=== PATIENT | female | born 1970 | race Caucasian/White ===

== ENCOUNTER → 2020-05-01 14:21 | Outpatient (CLI) | payer BC, SELFPAY ==
[2014-05-12 12:18] VITALS: BMI 21.9
[2020-05-01 17:54] LABS: CRP < 2.90 mg/L (0.0-3.0)
[2020-05-04 18:21] LABS: Endomysial Antibody IgA Negative (Negative); Immunoglobulin A 209 mg/dL (87-352); t-Transglutaminase IgA <2 U/mL (0-3)
== END ==
PROVIDERS: PCP Student in an Organized Health Care Education/Training Program; Referring Provider Internal Medicine Gastroenterology; Visit Provider Internal Medicine Gastroenterology
DX: R19.7 Diarrhea, unspecified (principal)
CPT/HCPCS: 36415; 82784; 83516; 86140; 86255

== ENCOUNTER 2023-03-26 21:01 | Inpatient (IN) | payer BC, SELFPAY ==
[2023-03-26 19:35] VITALS: BMI 25.2
[2023-03-26 19:55] VITALS: BP 102/77; PULSE 80; RESP 16; TEMP 36.9; O2SAT 97
--- NOTE | 2023-03-26 20:30 | HP.PCM.HOS_ITS ---
HPI - General General Date of Admission: 03/26/23 Date of Service: 03/26/23 Chief Complaint: Abdominal pain, N/V. HPI Narrative The patient is a 53 y/o F w/ PMHx: GERD, Anxiety and Depression, IBS, Tobacco use, Hypothyroidism, Chronic migraines, Hx SBO s/p resection, Hx SAH, Stage IA(pT1b pN0 M0) Invasive Ductal carcinoma followiing with Dr. Live and Spencer who presents to the [facility] on 03/26/23 as direct admission for partial SBO initially seen at [facility] on day of presentation with reportedly abdominal pain being primarily in the right lower quadrant, distention, nausea and emesis starting initially early in the a.m. the day prior described as cramping which persisted and worsened with eventually onset of nausea and emesis as well and distention similar with her prior presentations with at least 8-10 episodes previously of partial bowel obstructions prompting outside ED evaluation with CT scan consistent with partial small bowel obstruction with requested transfer for further evaluation and to [facility]. Currently upon evaluation patient is rating her discomfort is 4 out of 10 in severity and notes it has been worsening again as she was dosed with pain medication just prior to transfer. Patient reports that her last bowel movement was on . She notes she is not passed flatus for at least the last 24 hours. FORMERLY [facility] Medical History (Updated 03/26/23 @ 21:[address] Renee Haas MD) Abnormal mammogram with microcalcification Acid reflux Anxiety Arthritis Bowel obstruction Breast cancer Cataplexy delivery delivered Decreased ROM of left shoulder Degenerative disc disease, cervical Degenerative disc disease, lumbar Depression Fibromyalgia Fibromyositis Fracture, ankle Fracture, jaw Hiatal hernia Hypothyroid IBS (irritable bowel syndrome) Migraine Narcolepsy Narcolepsy with cataplexy Nausea & vomiting Paresthesia of arm Postmenopausal Somatic dysfunction of back Spinal stenosis Subarachnoid hemorrhage Tonsillectomy planned Home Medications aripiprazole 2 mg tablet 2 mg PO DAILY 10/21/20 [History Last Taken Unknown] buspirone 10 mg tablet 10 mg PO TID 10/21/20 [History Last Taken Unknown] duloxetine 30 mg capsule,delayed release (Cymbalta) 90 mg PO DAILY 10/21/20 [History Last Taken Unknown] gabapentin 800 mg tablet 800 mg PO QHS 10/21/20 [History Last Taken Unknown] levothyroxine 75 mcg capsule 75 mcg PO DAILY 10/21/20 [History Last Taken Unknown] promethazine 25 mg tablet 25 mg PO TID PRN 10/21/20 [History Last Taken Unknown] sodium, calcium, magnesium, potassium oxybates 0.5 gram/mL oral soln (Xywav) 1.8 g PO BID 10/21/20 [History Last Taken Unknown] sumatriptan 20 mg/actuation nasal spray 20 mg intranasal Q2H PRN 10/21/20 [History Last Taken Unknown] sodium, calcium, magnesium, potassium oxybates 0.5 gram/mL oral soln (Xywav) 4.5 g PO BID 11/03/20 [History Last Taken Unknown] zolpidem 6.25 mg tablet,extended release,multiphase (Ambien CR) 12.5 mg PO QHS 03/09/21 [History Last Taken Unknown] linaclotide 72 mcg capsule (Linzess) 75 mcg PO DAILY 08/31/21 [History Last Taken Unknown] letrozole 2.5 mg tablet 2.5 mg PO DAILY estrogen caden 03/26/23 [History Last Taken 03/25/23 08:00 2.5 mg] Allergy/AdvReac Type Severity Reaction Status Date / Time shellfish derived Allergy Intermediate Diarrhea Verified 10/13/22 15:26 tramadol AdvReac Intermediate Headache Verified 10/13/22 15:26 and Vomiting codeine AdvReac Migraine Verified 10/13/22 15:26 Family History (Updated 03/26/23 @ 21:[address] Renee Haas MD) Mother CVA (cerebral vascular accident) Father Anxiety and depression Suicide Surgical History H/O wisdom tooth extraction H/O: hysterectomy History of appendectomy History of laparoscopy History of lumpectomy of left breast History of resection of small bowel History of tubal ligation Social History (Updated 03/26/23 @ 21:[address] 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 Smoking Status: Current every day smoker tobacco type: cigarettes Tobacco: How many years used: 30 how long ago did patient quit smoking: PATIENT QUIT SMOKING IN 2017 AND RECENTLY RESTARTED IN 2020 alcohol intake: never substance use type: does not use ROS ROS Narrative Admission Review of Systems: CONSTITUTIONAL: No weight loss, fever, chills, + weakness or fatigue. HEENT: Eyes: No visual loss, blurred vision, double vision or yellow sclerae. Ears, Nose, Throat: No hearing loss, sneezing, congestion, runny nose or sore throat. SKIN: No rash or itching, lesions, wounds. CARDIOVASCULAR: No chest pain, chest pressure or chest discomfort, palpitations, edema, orthopnea, syncopal events. RESPIRATORY: No shortness of breath, cough or sputum, wheezing, hemoptysis. GASTROINTESTINAL: + anorexia, nausea, vomiting, abdominal pain, abdominal cramping, abdominal distention. No diarrhea, melena, BRBPR. GENITOURINARY: No dysuria, frequency, urgency or retention. NEUROLOGICAL: + Chronic neuropathy, chronic migraines. No current headache, dizziness, syncope, paralysis, ataxia, numbness or tingling in the extremities, focal weakness, change in bowel or bladder control, seizure. MUSCULOSKELETAL: + muscle, back pain, joint pain or stiffness. HEMATOLOGIC: No anemia, bleeding or bruising. LYMPHATICS: No enlarged nodes. No history of splenectomy. PSYCHIATRIC: + history of depression or anxiety. ENDOCRINOLOGIC: No reports of sweating, cold or heat intolerance. No polyuria or polydipsia. ALLERGIES: No history of asthma, hives, eczema or rhinitis. Vital Signs Vital Signs Vital Signs: 03/26/23 19:55 03/26/23 19:55 Temperature 98.5 F Temperature Source Oral Pulse Rate 80 Respiratory Rate 16 Respiratory Effort Normal Non-Labored Respiratory Depth Normal Respiratory Pattern Normal Blood Pressure 102/77 Blood Pressure Mean 85 Blood Pressure Source Monitor Blood Pressure Position Semi-Fowlers Blood Pressure Location Left Arm Pulse Ox 97 Oxygen Delivery Method Room Air Room Air Weight Weight: 147 lb Body Mass Index (BMI) 25.2 Physical Exam Narrative Physical Examination: General: Awake, alert, oriented x 3 and cooperative, seated upright in the MS bed, fatigued, mildly uncomfortable appearing. Skin: Normal color, normal turgor, no icterus, no cyanosis. HEENT: AT/NC, EOMI, PERRLA, dry MM, no carotid bruits or JVD noted. Lungs: CTA bilaterally, moderate effort, mild decrease BL bases, no rales, ronchi or wheezing. Heart: Regular rate and rhythm; no gallop, rub audible. Abdomen: Soft, generalized discomfort but worse in the right lower quadrant with some voluntary guarding, high-pitched in the right upper quadrant with absent bowel sounds elsewhere, mildly distended but not severe, no obvious HSM. Extremities: No cyanosis, clubbing, or edema. Neurological: Patient awake, alert, oriented x 3, cognitive function intact; pupils equally reactive to light and accommodation, cranial nerves II-XII grossly normal, moving all 4 extremities, no focal deficits, strength moderately globally decreased secondary to acute presentation complaints. Psychiatric: Affect appears fatigued, mildly uncomfortable, no acute evidence of depressive or anxiety feelings but does have underlying history. Assessment & Plan Assessment/Plan (1) Partial bowel obstruction: PLAN: Plan The patient is a 53 y/o F w/ PMHx: GERD, Anxiety and Depression, IBS, Tobacco use, Hypothyroidism, Chronic migraines, Hx SBO s/p resection, Hx SAH, Stage IA(pT1b pN0 M0) Invasive Ductal carcinoma followiing with Dr. Live and Spencer who presents to the [facility] on 03/26/23 as direct admission for partial SBO initially seen at [facility] on day of presentation with reportedly abdominal pain, distention, nausea and emesis with CT scan consistent with partial small bowel obstruction with requested transfer for further evaluation and to [facility]. #1. Abdominal pain, nausea, emesis w/ SBO: Will admit to MS, maintain on IVFs, continue NGT to suction, strict I&Os, IV pain/anti-emetics PRN, serial KUB repeat in AM, IV PPI, maintain NPO on bowel rest. General surgery consulted, p ending #2. Stage IA(pT1b pN0 M0) Invasive Ductal carcinoma: s/p lumpectomy and sentinel node biopsy, + DCIS, ER positive, [place] negative, Her2 negative, declined chemotherapy and genetic testing, received adjuvant Radiation for 12/15/2020 to 01/08/2021, maintained on anastrozole after 8 days due to diarrhea then transitioned to Letrozole since 02/08/2021. Encourage continued follow-up with oncology as previously arranged. Mag and Phos pending. As noted temporally thing all oral regimen including letrozole. #3. Chronic migraines: If necessary may dose patient with as needed sumatriptan regimen once SBO resolves, currently holding all oral meds, per list not on any chronic preventative medications. #4. Anxiety and depression: We will continue patient home aripiprazole, BuSpar, duloxetine home regimen once SBO resolves, currently holding all meds. #5. Hypothyroidism: We will continue patient home levothyroxine regimen once SBO resolves, currently holding all meds. #6. Chronic back pain with radiculopathy: We will continue patient home chronic gabapentin regimen once SBO resolved, currently holding all meds, encourage frequent positional changes. #7. Tobacco Abuse: Encouraged cessation, inpatient consultation per RT, NR if desired. #8. History of subarachnoid hemorrhage: Unclear specific history, surgical history no intervention listed. #9. IBS: We will continue patient home Linzess regimen once SBO resolves, currently holding all meds. #10. GERD: We will maintain on IV PPI. #11. DVT prophylaxis: Lovenox. Charges/Coding Visit Charges Inpatient E&M: 07031 Init Hosp L3
[2023-03-26 21:14] VITALS: O2SAT 99
--- NOTE | 2023-03-26 22:00 | RAD_ITS ---
INDICATION: after NG placement -- KUB with both diaphragms for NG/OG Verification EXAMINATION/TECHNIQUE: X-RAY - XR Abdomen 1 View COMPARISON: None FINDINGS: Frontal view lower chest and upper abdomen Enteric tube tip within gastric lumen with distal side port at level of diaphragm. No significant bowel dilatation demonstrated. Unremarkable lung bases. Heart normal size. Left axillary surgical clips. No acute osseous abnormality. Renal excretion of contrast noted. RAD/Abdomen Single View (Portable) IMPRESSION: Recommend advancing enteric tube at least 4 cm to clear distal side-port from level of GE junction. Electronically Signed: Fredi Mistry MD at 23:08 EDT ,
[2023-03-26] MEDS: Pantoprazole Sodium 40 MG in 0.9% Normal Saline (100mL MB+) 100 ML 330 MG IV (22:03)
[2023-03-26] MEDS: Phenol/Sodium Phenolate 180ML 5 SPRAY MUCOUS MEM (22:03)
[2023-03-26] MEDS: 0.9% Normal Saline (1000mL) 1,000 ML 100 ML IV (22:03)
[2023-03-26] MEDS: Oxymetazoline 0.05% 1 SPRAY SPRAY.BTL 2 SPRAY NASAL (22:04)
[2023-03-26] MEDS: Ondansetron 4 MG/2 ML Vial IV (22:06)
[2023-03-26] MEDS: 0.9% Saline Lock 10 ML Syringe IV (22:06)
[2023-03-26] MEDS: Morphine 2 MG/ML Syringe IV (22:06)
--- NOTE | 2023-03-26 23:22 | RAD_ITS ---
INDICATION: ng placement EXAMINATION/TECHNIQUE: X-RAY - XR Abdomen 1 View: AP view upper abdomen COMPARISON: Upper abdominal radiograph from approximately one hour prior FINDINGS: Adequate position of enteric tube tip at mid stomach with distal side-port below level of GE junction. No significant bowel dilatation. Unremarkable lung bases. Heart normal size. No acute osseous abnormality. RAD/Abdomen Single View (Portable) IMPRESSION: Adequate position of enteric tube Electronically Signed: Fredi Mistry MD at 0:16 EDT ,
--- NOTE | 2023-03-27 00:48 | NURSING ---
NG inserted by isabel Childers RN. Immediately following result of initial KUB, this nurse advanced NG as recommended in results with isabel Childers RN present. BETTY Childers ordered a new KUB. Upon return of KUB and verification of placement, NG connected to LIWS per orders. Nothing came out through RN. this RN then flushed NG per orders and suction pulled out fluid that had been flushed through NG with, very few, small flecks of dark sediment. Pt tolerated well
[2023-03-27] MEDS: proCHLORPERazine 10 MG/2 ML Vial 5 MG IV ×2 (00:57→11:14)
[2023-03-27] MEDS: Morphine 2 MG/ML Syringe IV ×2 (00:57→06:53)
[2023-03-27] MEDS: 0.9% Saline Lock 10 ML Syringe IV ×3 (00:58→11:14)
[2023-03-27 03:30] VITALS: BP 87/50; PULSE 70; RESP 12; TEMP 36.5; O2SAT 92
[2023-03-27 05:03] VITALS: BMI 25.2
[2023-03-27 05:23] LABS: Bedside Glucose 90 mg/dL (74-106)
--- NOTE | 2023-03-27 05:55 | RAD_ITS ---
INDICATION: pSBO EXAMINATION/TECHNIQUE: X-RAY - XR Abdomen 1 View COMPARISON: FINDINGS: Nasogastric tube extends below the left hemidiaphragm. There is contrast seen within the urinary bladder. BOWEL GAS PATTERN: Non-obstructive. No bowel or stomach distention. FREE AIR: Not assessed on a single supine view. ORGANOMEGALY: Not seen. CALCIFICATIONS: No abnormal calcifications observed. LOWER CHEST: No acute pathology. BONES AND SOFT TISSUES: No acute pathology. RAD/Abdomen Single View (Portable) IMPRESSION: Non-obstructive bowel gas pattern. Nasogastric tube extends below left hemidiaphragm. Electronically Signed: Fredi Arreola MD at 9:32 EDT ,
[2023-03-27 06:24] LABS: Absolute Lymphocyte Count 1.27 X10^3/uL (0.83-4.51); Absolute Neutrophil Count 5.3 X10^3/uL (2.0-7.7); Basophil# 0.07 X10^3/uL; Eosinophil# 0.02 X10^3/uL; Eosinophils% 0.3 % (0-5); Hematocrit 43.4 % (37-47); Hemoglobin 13.6 g/dL (12.0-15.0); Lymphocyte # 1.27 X10^3/ul (0.83-4.51); Lymphocyte % 17.5 % (19-41); Mean Corp Hgb Conc 31.3 g/dL (32-36); Mean Corpuscular Hgb 29.6 pg (27.0-32.0); Mean Corpuscular Volume 94.6 fL (81-99); Mean Platelet Vol. 9.4 fl (6.2-12.0); Monocyte# 0.53 X10^3/uL; Monocyte% 7.3 % (0-10); NRBC Flagged by Analyzer 0 % (0-5); Neutrophil # 5.34 X10^3/uL (2.7-7.7); Neutrophil % 73.3 % (47-70); Platelet Count 263 K/mm3 (150-450); RBC Distribution Width CV 13.8 % (11.6-14.6); RBC Distribution Width SD 48.6 fl (35.1-43.9); Red Blood Count 4.59 M/mm3 (4.2-5.4); White Blood Count 7.3 K/mm3 (4.4-11.0)
[2023-03-27 06:49] LABS: AST(SGOT) 6 U/L (15-37); Alanine Aminotransfer ALT/SGPT 15 U/L (13-56); Albumin, Serum 2.9 g/dL (3.2-5.0); Alkaline Phosphatase 67 U/L (45-117); Anion Gap 4 (5-15); BUN 13 mg/dL (7-18); BUN/Creat Ratio 11.3 RATIO (10-20); Calcium,Total 7.9 mg/dL (8.5-10.1); Chloride 109 mmol/L (98-107); Creatinine, Serum 1.15 mg/dL (0.55-1.02); EST Glomerular Filtration Rate 52 mL/min (>60); Est Glom Filt Rate - Afr Amer 63 mL/min (>60); Estimated Creatinine Clearance 47.73 ml/min; Globulin 2.8 g/dL (2.2-4.2); Glucose 87 mg/dL (74-106); Magnesium 2.5 mg/dL (1.6-2.6); Potassium 4.2 mmol/L (3.5-5.1); Protein, Total 5.7 g/dL (6.4-8.2); Sodium Level 139 mmol/L (136-145)
[2023-03-27] MEDS: 0.9% Normal Saline (1000mL) 1,000 ML 100 ML IV ×2 (06:49→19:55)
[2023-03-27] MEDS: Ondansetron 4 MG/2 ML Vial IV (06:53)
[2023-03-27 06:54] LABS: Phosphorus 3.1 mg/dL (2.5-4.9)
[2023-03-27 07:25] VITALS: O2SAT 87
--- NOTE | 2023-03-27 07:49 | PN.HOSP_ITS ---
Reason for Visit Reason for Visit: Diagnoses Partial intestinal obstruction, unspecified as to cause (03/26/23) Subjective Subjective Patient reports having headache, did pass some gas but still just feeling bad overall Objective Data Objective Data Vital Signs: Vital Signs Temp Pulse Resp BP Pulse Ox O2 Del Method 97.7 F L 70 12 87/50 L 92 Room Air 03/27/23 03:30 03/27/23 03:30 03/27/23 03:30 03/27/23 03:30 03/27/23 03:30 03/27/23 03:30 Oxygen Delivery Method Room Air Weight: 66.67 kg Body Mass Index (BMI) 25.2 Intake & Output: Intake and Output for Last 24 Hours 03/25/23 03/26/23 03/27/23 23:59 23:59 23:59 Intake Total 113.33 / 238.33 1093.33 / 1093.33 Output Total 150 / 150 Balance 113.33 / 138.33 943.33 / 943.33 Lab / Micro Data 03/27/23 05:55 03/27/23 05:55 Labs: Laboratory Results - last 24 hr 03/27/23 04:54: POC Glucose 90 03/27/23 05:55: WBC 7.3, RBC 4.59, Hgb 13.6, Hct 43.4, MCV 94.6, MCH 29.6, MCHC 31.3 L, RDW Std Deviation 48.6 H, RDW Coeff of Sawyer 13.8, Plt Count 263, MPV 9.4, Immature Gran % (Auto) 0.600, Neut % (Auto) 73.3 H, Lymph % (Auto) 17.5 L, [place] % (Auto) 7.3, Eos % (Auto) 0.3, Baso % (Auto) 1.0, Absolute Neuts (auto) 5.3, Absolute Lymphs (auto) 1.27, Nucleated RBC % 0, Sodium 139, Potassium 4.2, Ch loride 109 H, Carbon Dioxide 26.0, Anion Gap 4 L, BUN 13, Creatinine 1.15 H, Estim Creat Clear Calc 47.73, Est GFR (MDRD) Af Amer 63, Est GFR (MDRD) Non-Af 52 L, BUN/Creatinine Ratio 11.3, Glucose 87, Calcium 7.9 L, Phosphorus 3.1, Magnesium 2.5, Total Bilirubin 1.10 H, AST 6 L, ALT 15, Alkaline Phosphatase 67, Total Protein 5.7 L, Albumin 2.9 L, Globulin 2.8, Albumin/Globulin Ratio 1.0 Radiography Diagnostic Testing: Radiology Impression KUB X-Ray 03/26/23 22:00 IMPRESSION: Recommend advancing enteric tube at least 4 cm to clear distal side-port from level of GE junction. Electronically Signed: Fredi Mistry MD at 23:08 EDT , KUB X-Ray 03/26/23 23:22 IMPRESSION: Adequate position of enteric tube Electronically Signed: Fredi iMstry MD at 0:16 EDT , Physical Exam Narrative General: Alert, oriented, appears tired HEENT: Atraumatic, normocephalic Eyes: Anicteric, normal conjunctiva, extraocular movements grossly intact Neck: Supple Respiratory: Clear to auscultation bilaterally, normal respiratory effort Cardiovascular: Regular rate and rhythm GI: Soft, hypoactive bowel sounds, no rebound, guarding, rigidity nondistended Extremities: No edema Musculoskeletal: Moving all extremities Neuro: No overt focal neurological deficits Skin: No rashes appreciated Psych: Cooperative Assessment & Plan Assessment/Plan (1) Partial bowel obstruction: PLAN: Plan #Partial small bowel obstruction -With history of small bowel obstruction status post resection and multiple episodes of partial small bowel obstructions -Presented to outlying facility and CT scan consistent with partial small bowel obstruction and transfer is requested to [facility] -IVF -Continue NG tube -Serial KUBs -General surgery consult -03/27: NG tube remains in place, patient undergoing small bowel follow-through, continue present management #Chronic migraines -Has a migraine at present, we do not have her intranasal triptan on formulary, will give subcu x1 #Stage IA(pT1b pN0 M0) Invasive Ductal carcinoma -s/p lumpectomy and sentinel node biopsy, + DCIS, ER positive, [place] negative, Her2 negative, declined chemotherapy and genetic testing, received adjuvant Radiation for 12/15/2020 to 01/08/2021, on letrozole after not tolertaing anastrozole d/t diarrhea -following with Dr. Live and Spencer #Chronic back pain with radiculopathy -Resume home gabapentin once SBO resolves #Hx anxiety and depression -Anxiety and depression: We will continue patient home aripiprazole, BuSpar, duloxetine home regimen once SBO resolves, currently holding all meds. #Hx SAH -Supportive care -Unclear specific history, surgical history no intervention listed #Hypothyroidism -Continue Synthroid once patient taking p.o. #GERD -Continue IV PPI #Tobacco use -Advise cessation #DVT ppx: Subcu Lovenox Josselyn Miller MD Time spent in the patient's overall evaluation,decision-making process, review of diagnostic data, adjustment of management, discussion with other providers, nursing nursing and ancillary staff involved in patient's care documentation, 36 minutes Charges/Coding Visit Charges Inpatient E&M: 42559 Subs Hosp L2
--- NOTE | 2023-03-27 07:57 | CON.PCM.SX_ITS ---
Assessment & Plan Assessment/Plan (1) Partial bowel obstruction: PLAN: Patient was transferred here with a partial small bowel obstruction. She does have a history of small bowel resection due to obstruction. Her NG did not put much out. She is having pain and her outside CT suggested partial small bowel obstruction. I will order a small bowel follow-through today. Pieter Sanchez MD Pager: [facility] [address] [place] [address] [facility] [place], [address] [place] [phone] Office: HPI Consult Data Date of Consult: 03/27/23 HPI Narrative HPI Narrative: KAVITHA SKINNER, is a 53 F who presents with abdominal pain. Patient has had several bowel obstructions in the past. She says her last bowel resection was years ago. Her last bowel obstruction was a few years ago. She says usually they resolve spontaneously. She says that she has not had flatus in a few days. [facility] Medical History (Updated 03/26/23 @ 21:[address] Renee Haas MD) Abnormal mammogram with microcalcification Acid reflux Anxiety Arthritis Bowel obstruction Breast cancer Cataplexy delivery delivered Decreased ROM of left shoulder Degenerative disc disease, cervical Degenerative disc disease, lumbar Depression Fibromyalgia Fibromyositis Fracture, ankle Fracture, jaw Hiatal hernia Hypothyroid IBS (irritable bowel syndrome) Migraine Narcolepsy Narcolepsy with cataplexy Nausea & vomiting Paresthesia of arm Postmenopausal Somatic dysfunction of back Spinal stenosis Subarachnoid hemorrhage Tonsillectomy planned Home Medications aripiprazole 2 mg tablet 2 mg PO DAILY depression 10/21/20 [History Last Taken 03/25/23 08:00 2 mg] buspirone 10 mg tablet 10 mg PO TID anxiety 10/21/20 [History Last Taken 03/25/23 08:00 20 mg] duloxetine 30 mg capsule,delayed release (Cymbalta) 90 mg PO DAILY depression 10/21/20 [History Last Taken 03/25/23 10:00 90 mg] gabapentin 800 mg tablet 800 mg PO QHS nerve pain 10/21/20 [History Last Taken 03/25/23 22:00 800 mg] levothyroxine 75 mcg capsule 75 mcg PO DAILY thyroid 10/21/20 [History Last Taken 03/25/23 06:00 75 mcg] promethazine 25 mg tablet 25 mg PO TID PRN nausea and vomiting 10/21/20 [History Last Taken Unknown] sodium, calcium, magnesium, potassium oxybates 0.5 gram/mL oral soln (Xywav) 1.8 g PO BID narcolepsy 10/21/20 [History Last Taken 03/25/23 22:00 1.8 grams] sumatriptan 20 mg/actuation nasal spray 20 mg intranasal Q2H PRN migraine headache 10/21/20 [History Last Taken Unknown] sodium, calcium, magnesium, potassium oxybates 0.5 gram/mL oral soln (Xywav) 4.5 g PO BID narcolepsy 11/03/20 [History Last Taken 03/25/23 02:00 4.5 grams] zolpidem 6.25 mg tablet,extended release,multiphase (Ambien CR) 12.5 mg PO QHS sleep 03/09/21 [History Last Taken 03/25/23 22:00 12.5 mg] letrozole 2.5 mg tablet 2.5 mg PO DAILY estrogen caden 03/26/23 [History Last Taken 03/25/23 08:00 2.5 mg] Allergy/AdvReac Type Severity Reaction Status Date / Time shellfish derived Allergy Intermediate Diarrhea Verified 10/13/22 15:26 tramadol AdvReac Intermediate Headache Verified 10/13/22 15:26 and Vomiting codeine AdvReac Migraine Verified 10/13/22 15:26 Family History (Updated 03/26/23 @ 21:[address] Renee Haas MD) Mother CVA (cerebral vascular accident) Father Anxiety and depression Suicide Surgical History H/O wisdom tooth extraction H/O: hysterectomy History of appendectomy History of laparoscopy History of lumpectomy of left breast History of resection of small bowel History of tubal ligation Social History (Updated 03/26/23 @ 21:[address] 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 Smoking Status: Current every day smoker tobacco type: cigarettes Tobacco: How many years used: 30 how long ago did patient quit smoking: PATIENT QUIT SMOKING IN 2017 AND RECENTLY RESTARTED IN 2020 alcohol intake: never substance use type: does not use ROS Constitutional Constitutional: Reports anorexia; Denies fatigue Eyes Eyes: Denies blurry vision ENT HEENT: Denies abnormal hearing Cardiovascular Cardiovascular: Denies chest pain Respiratory/Chest Respiratory/Chest: Reports cough; Denies dyspnea Gastrointestinal Gastrointestinal: Reports abdominal pain; Denies nausea or vomiting Lab / Micro Data 03/27/23 05:55 03/27/23 05:55 Labs: Laboratory Results - last 24 hr 03/27/23 04:54: POC Glucose 90 03/27/23 05:55: WBC 7.3, RBC 4.59, Hgb 13.6, Hct 43.4, MCV 94.6, MCH 29.6, MCHC 31.3 L, RDW Std Deviation 48.6 H, RDW Coeff of Sawyer 13.8, Plt Count 263, MPV 9.4, Immature Gran % (Auto) 0.600, Neut % (Auto) 73.3 H, Lymph % (Auto) 17.5 L, [place]rack[place] % (Auto) 7.3, Eos % (Auto) 0.3, Baso % (Auto) 1.0, Absolute Neuts (auto) 5.3, Absolute Lymphs (auto) 1.27, Nucleated RBC % 0, Sodium 139, Potassium 4.2, Chloride 109 H, Carbon Dioxide 26.0, Anion Gap 4 L, BUN 13, Creatinine 1.15 H, Estim Creat Clear Calc 47.73, Est GFR (MDRD) Af Amer 63, Est GFR (MDRD) Non-Af 52 L, BUN/Creatinine Ratio 11.3, Glucose 87, Calcium 7.9 L, Phosphorus 3.1, Magnesium 2.5, Total Bilirubin 1.10 H, AST 6 L, ALT 15, Alkaline Phosphatase 67, Total Protein 5.7 L, Albumin 2.9 L, Globulin 2.8, Albumin/Globulin Ratio 1.0 Radiology Impression KUB X-Ray 03/26/23 22:00 IMPRESSION: Recommend advancing enteric tube at least 4 cm to clear distal side-port from level of GE junction. Electronically Signed: Fredi Mistry MD at 23:08 EDT , KUB X-Ray 03/26/23 23:22 IMPRESSION: Adequate position of enteric tube Electronically Signed: Fredi Mistry MD at 0:16 EDT ,
--- NOTE | 2023-03-27 08:45 | RAD_ITS ---
INDICATION: sbo -- normal gastgrograffin follow through EXAMINATION/TECHNIQUE: Gastrograffin oral contrast was administered orally via enteric tube to the patient. 7 total images. No fluoroscopic images. 120 mL of Gastrografin with 120 mL of water administered. COMPARISON: Prior study dated: Radiograph 03/27/2023 FINDINGS: On the initial image contrast is injected through the enteric tube filling the proximal stomach. Gas filled small bowel seen proximally with scattered gas throughout the remainder of the bowel noted. After 30 minutes, contrast still mostly fills the stomach though there is some progression into the proximal small bowel. There is further progression of contrast on the 60 and 90 minute images. After 120 minutes, contrast is seen entering the colon. This is further progressive on the subsequent images up to 240 minutes. RAD/Small Bowel Series Only IMPRESSION: Gastrografin small bowel study showing passage of contrast through the small bowel and into the colon after 120 minutes. This is not consistent with a high-grade obstruction. Electronically Signed: Gary Sabillon MD at 15:18 EDT ,
[2023-03-27] MEDS: Enoxaparin 40 MG/0.4 ML Syringe SC (11:15)
[2023-03-27] MEDS: Pantoprazole Sodium 40 MG in 0.9% Normal Saline (100mL MB+) 100 ML 330 MG IV ×2 (11:15→22:07)
[2023-03-27 11:29] VITALS: BP 133/76; PULSE 80; PULSE 91; RESP 18; TEMP 36.7; O2SAT 93
[2023-03-27 11:57] LABS: Bedside Glucose 90 mg/dL (74-106)
--- NOTE | 2023-03-27 13:10 | CASEMGMT ---
RN?CM?VEHICLE OPERATOR TECHNICIAN?CM?to room to meet with patient for initial transition planning/care coordination?assessment.?RN?CM?introduced self and role at [facility].? Pt voices understanding and consents to?assessment?at this time.? Pt resting in bed in no distress at this time.? Pt is A/O at this time and answers all questions appropriately.?? Care providers, pharmacy, and demographics verified/updated at this time. PCP: Dr Miller Beck Specialists: Dr Live-oncology. Pt states she has an appt w/him tomorrow and lab work is scheduled for 12:30 PM. She states she will call and cancel the appt if she is not discharged prior to then. RN CM made her aware to ask for RN CM if she needs any assistance w/this. Pt also sees Dr Palmer-radiation oncologist and Dr Duke-neurology Preferred Pharmacy: [facility] Insurance: [place] Prescription Benefit:?Yes Living Will/HPOA:? Pt does not currently have LW/HCPOA and declines info at this time.? Pt made aware that she can contact as an out-pt and make appt in the future if she decides she would like to talk with someone about this or would like to utilize [facility] social work for advanced directive completion.? LNOK: , [place] Living Arrangements: Lives w/her in 2-story home w/5 or so steps to enter. Denies difficulty w/stairs. Independent and works full-time. Transportation:?Pt states drives self and states no transportation concerns at this time.? also drives. DME: ? Denies using any DME and denies needs.? HHC/SNF: No hx of either. No needs identified. Pt wishes to return home and states has no concerns with going home at time of discharge.? CM?to follow for any discharge planning/needs.? Pt voices no concerns/needs at this time.? Advised pt to ask for?CM?if any further questions/concerns/needs arise.? Voices understanding. PLAN:??Home Zachary BSN?RN?CM
[2023-03-27 14:58] VITALS: BP 113/75; PULSE 81; RESP 18; TEMP 36.8; O2SAT 100
[2023-03-27 15:01] VITALS: PULSE 90
[2023-03-27] MEDS: SUMAtriptan 20 MG SPRAY NASAL (15:15)
[2023-03-27 19:50] VITALS: BP 98/63; PULSE 70; RESP 14; TEMP 36.9; O2SAT 93
[2023-03-28 05:08] VITALS: BP 106/59; PULSE 67; RESP 16; TEMP 37; O2SAT 99
[2023-03-28 05:10] VITALS: BMI 25.2
[2023-03-28] MEDS: 0.9% Normal Saline (1000mL) 1,000 ML 100 ML IV (05:12)
--- NOTE | 2023-03-28 06:36 | PCM.PN.SRG ---
Subjective Subjective Patient had small bowel follow-through yesterday and she had several bowel movements and flatus overnight. She is feeling better with no abdominal pain or nausea this morning. NG was removed yesterday evening. She tolerated clears last night. Objective Data Objective Data Vital Signs: Vital Signs Temp Pulse Resp BP Pulse Ox O2 Del Method 98.6 F 67 16 106/59 L 99 Room Air 03/28/23 05:08 03/28/23 05:08 03/28/23 05:08 03/28/23 05:08 03/28/23 05:08 03/28/23 05:08 Oxygen Delivery Method Room Air Weight: 146 lb 15.715 oz Body Mass Index (BMI) 25.2 Intake & Output: Intake and Output for Last 24 Hours 03/26/23 03/27/23 03/28/23 23:59 23:59 23:59 Intake Total 113.33 / 238.33 2438.33 / 2438.33 1428.33 / 1428.33 Output Total 600 / 600 Balance 113.33 / 138.33 1838.33 / 1838.33 1428.33 / 1428.33 Lab / Micro Data 03/27/23 05:55 03/27/23 05:55 Labs: Laboratory Results - last 24 hr 03/27/23 05:55: Sodium 139, Potassium 4.2, Chloride 109 H, Carbon Dioxide 26.0, Anion Gap 4 L, BUN 13, Creatinine 1.15 H, Estim Creat Clear Calc 47.73, Est GFR (MDRD) Af Amer 63, Est GFR (MDRD) Non-Af 52 L, BUN/Creatinine Ratio 11.3, Glucose 87, Calcium 7.9 L, Phosphorus 3.1, Magnesium 2.5, Total Bilirubin 1.10 H, AST 6 L, ALT 15, Alkaline Phosphatase 67, Total Protein 5.7 L, Albumin 2.9 L, Globulin 2.8, Albumin/Globulin Ratio 1.0 03/27/23 11:09: POC Glucose 90 Radiography Diagnostic Testing: Radiology Impression KUB X-Ray 03/27/23 05:55 IMPRESSION: Non-obstructive bowel gas pattern. Nasogastric tube extends below left hemidiaphragm. Electronically Signed: Fredi Arreola MD at 9:32 EDT , Small Bowel X-Ray 03/27/23 08:45 IMPRESSION: Gastrografin small bowel study showing passage of contrast through the small bowel and into the colon after 120 minutes. This is not consistent with a high-grade obstruction. Electronically Signed: Gary Sabillon MD at 15:18 EDT , Physical Exam Const oriented x3 and no apparent distress Resp normal respiratory effort GI soft to palpation and non-tender Assessment & Plan Assessment/Plan (1) Partial bowel obstruction: PLAN: Patient's bowel obstruction seems to have resolved. She has small bowel follow-through yesterday which showed contrast going into the colon. She had several bowel movements overnight and is passing a lot of flatus. She tolerated clears and her NG was removed last night. I will advance her to regular diet today and if she tolerates that she may be discharged home. Follow-up as needed. Pieter Sanchez MD Pager: [facility] [address] [place] [address], [address] [place] [address] Office:
[2023-03-28 06:43] LABS: Absolute Lymphocyte Count 0.63 X10^3/uL (0.83-4.51); Absolute Neutrophil Count 4.5 X10^3/uL (2.0-7.7); Basophil# 0.05 X10^3/uL; Basophil% 0.9 % (0-1); Hematocrit 39.7 % (37-47); Hemoglobin 12.9 g/dL (12.0-15.0); Lymphocyte # 0.63 X10^3/ul (0.83-4.51); Lymphocyte % 11.4 % (19-41); Mean Corp Hgb Conc 32.5 g/dL (32-36); Mean Corpuscular Hgb 29.7 pg (27.0-32.0); Mean Corpuscular Volume 91.5 fL (81-99); Mean Platelet Vol. 9.4 fl (6.2-12.0); Monocyte# 0.32 X10^3/uL; Monocyte% 5.8 % (0-10); NRBC Flagged by Analyzer 0 % (0-5); Neutrophil # 4.51 X10^3/uL (2.7-7.7); Neutrophil % 81.5 % (47-70); Platelet Count 244 K/mm3 (150-450); RBC Distribution Width CV 13.2 % (11.6-14.6); RBC Distribution Width SD 44.7 fl (35.1-43.9); Red Blood Count 4.34 M/mm3 (4.2-5.4); White Blood Count 5.5 K/mm3 (4.4-11.0)
[2023-03-28 07:16] LABS: Anion Gap 4 (5-15); BUN 8 mg/dL (7-18); BUN/Creat Ratio 9.6 RATIO (10-20); Calcium,Total 8.3 mg/dL (8.5-10.1); Chloride 111 mmol/L (98-107); Creatinine, Serum 0.83 mg/dL (0.55-1.02); EST Glomerular Filtration Rate 75 mL/min (>60); Est Glom Filt Rate - Afr Amer 91 mL/min (>60); Estimated Creatinine Clearance 66.13 ml/min; Glucose 103 mg/dL (74-106); Potassium 3.7 mmol/L (3.5-5.1); Sodium Level 139 mmol/L (136-145)
[2023-03-28 07:29] VITALS: O2SAT 99
[2023-03-28 08:35] VITALS: BP 117/58; PULSE 75; RESP 14; TEMP 36.7; O2SAT 96
[2023-03-28] MEDS: Pantoprazole Sodium 40 MG in 0.9% Normal Saline (100mL MB+) 100 ML 330 MG IV (09:26)
--- NOTE | 2023-03-28 11:00 | PCM.DC.SUM ---
Providers Date of Admission: 03/26/23 Date of Discharge: 03/28/23 Primary Care Physician: Dr. Miller Beck, Consultations 03/26/23 20:58 Consult: General Surgery Routine Consulting Provider: Pieter Sanchez Reason for Consult: pSBO EMERGENT Consult: No MD Notified: Yes Date Notified: 03/26/23 Time Notified: 20:59 Method of Notification: Text Reason For Visit: PSBO Diagnosis Discharge Diagnosis (1) Partial bowel obstruction: Status: Acute Code(s): K56.600 - Partial intestinal obstruction, unspecified as to cause Plan #Partial small bowel obstruction #Chronic migraines #Stage IA(pT1b pN0 M0) Invasive Ductal carcinoma #Chronic back pain with radiculopathy #Hx anxiety and depression #Hx SAH #Hypothyroidism #GERD #Tobacco use Medications at Discharge Home Medications aripiprazole 2 mg tablet 2 mg PO DAILY depression 10/21/20 buspirone 10 mg tablet 10 mg PO TID anxiety 10/21/20 duloxetine 30 mg capsule,delayed release (Cymbalta) 90 mg PO DAILY depression 10/21/20 gabapentin 800 mg tablet 800 mg PO QHS nerve pain 10/21/20 levothyroxine 75 mcg capsule 75 mcg PO DAILY thyroid 10/21/20 promethazine 25 mg tablet 25 mg PO TID PRN nausea and vomiting 10/21/20 sodium, calcium, magnesium, potassium oxybates 0.5 gram/mL oral soln (Xywav) 1.8 g PO BID narcolepsy 10/21/20 sumatriptan 20 mg/actuation nasal spray 20 mg intranasal Q2H PRN migraine headache 10/21/20 sodium, calcium, magnesium, potassium oxybates 0.5 gram/mL oral soln (Xywav) 4.5 g PO BID narcolepsy 11/03/20 zolpidem 6.25 mg tablet,extended release,multiphase (Ambien CR) 12.5 mg PO QHS sleep 03/09/21 letrozole 2.5 mg tablet 2.5 mg PO DAILY estrogen caden 03/26/23 Hospital Course Summary of Care Provided Minutes Spent on Discharge: 25 Hospital Course: The patient is a 53 y/o F w/ PMHx: GERD, Anxiety and Depression, IBS, Tobacco use, Hypothyroidism, Chronic migraines, Hx SBO s/p resection, Hx SAH, Stage IA(pT1b pN0 M0) Invasive Ductal carcinoma following with Dr. Live and Spencer who presents to the [facility] on 03/26/23 as direct admission for partial SBO. She had NG tube to suction and gen surgery consulted and pt had small bowel follow through which showed contrast in the colon. Pt began having BMs and passing flatus. NG removed and diet advanced and did well. Advised follow up at needed with surgery. Pt d/c'd home on her home medications. Physical Exam Narrative General: Alert, oriented, no apparent distress HEENT: Atraumatic, normocephalic Eyes: extraocular movements grossly intact Neck: Supple Respiratory: normal respiratory effort Cardiovascular: no edema appreciated GI: nondistended, soft, nontender, no rebound, guarding, rigidity Extremities: Moving all extremities Neuro: No overt focal neurological deficits Psych: Cooperative Weight / BMI Weight Weight: 66.67 kg Body Mass Index (BMI) 25.2 ABG / Lab / Microbiology Data 03/28/23 06:30 03/28/23 06:30 Laboratory: Laboratory Results - last 24 hr 03/27/23 11:09: POC Glucose 90 03/28/23 06:30: WBC 5.5, RBC 4.34, Hgb 12.9, Hct 39.7, MCV 91.5, MCH 29.7, MCHC 32.5, RDW Std Deviation 44.7 H, RDW Coeff of [place]yer 13.2, Plt Count 244, MPV 9.4, Immature Gran % (Auto) 0.400, Neut % (Auto) 81.5 H, Lymph % (Auto) 11.4 L, [place] % (Auto) 5.8, Eos % (Auto) 0.0, Baso % (Auto) 0.9, Absolute Neuts (auto) 4.5, Absolute Lymphs (auto) 0.63 L, Nucleated RBC % 0, Sodium 139, Potassium 3.7, Chloride 111 H, Carbon Dioxide 24.0, Anion Gap 4 L, BUN 8, Creatinine 0.83, Estim Creat Clear Calc 66.13, Est GFR (MDRD) Af Amer 91, Est GFR (MDRD) Non-Af 75, BUN/Creatinine Ratio 9.6 L, Glucose 103, Calcium 8.3 L Radiography Diagnostic Testing: Radiology Impression KUB X-Ray 10/09/23 05:55 IMPRESSION: Non-obstructive bowel gas pattern. Nasogastric tube extends below left hemidiaphragm. Electronically Signed: Fredi Arreola MD at 9:32 EDT , Small Bowel X-Ray 03/27/23 08:45 IMPRESSION: Gastrografin small bowel study showing passage of contrast through the small bowel and into the colon after 120 minutes. This is not consistent with a high-grade obstruction. Electronically Signed: Gary Sabillon MD at 15:18 EDT , D/C Instructions Discharge Diet: Light diet - advance as tolerated Meaningful Use Info Meaningful Use Diagnoses (Choose all that apply): None applicable Discharge Plan Admission Admit Date/Time: 03/26/23 21:01 Primary Reason for Your Visit: Abdominal pain Attending Provider: Josselyn Miller Primary Care Provider: Miller Beck Consulting Providers: Pieter Sanchez; Mateus Freeman Instructions Patient Instructions: Bowel Obstruction, Small Bowel Obstruction Discharge Orders/Prescriptions Prescriptions: Continued aripiprazole 2 mg tablet 2 mg PO DAILY buspirone 10 mg tablet 10 mg PO TID Rx Instructions: Take two tabs tid Xywav 0.5 gram/mL solution 1.8 g PO BID Rx Instructions: Take 4.5 mL PO BID duloxetine [Cymbalta] 30 mg capsule,delayed release(DR/EC) 90 mg PO DAILY gabapentin 800 mg tablet 800 mg PO QHS levothyroxine 75 mcg capsule 75 mcg PO DAILY promethazine 25 mg tablet 25 mg PO TID PRN (Reason: nausea and vomiting) sumatriptan 20 mg/actuation spray,non-aerosol 20 mg intranasal Q2H PRN (Reason: migraine headache) Rx Instructions: administer into one nostril as a single dose; if 2nd dose needed,administer into other nostril after at least 2 hrs, NTE 2 doses (40 mg) per episode Xywav 0.5 gram/mL solution 4.5 g PO BID Rx Instructions: administer the first dose at bedtime and the second dose 2.5-4 hours later zolpidem [Ambien CR] 6.25 mg tablet,ext release multiphase 12.5 mg PO QHS letrozole 2.5 mg tablet 2.5 mg PO DAILY Rx Instructions: 2.5 mg once daily Referrals / Follow Up: Miller Beck DO [Primary Care Provider] - Within 1 Week Disposition Disposition (needs filled in before D/C Order can be placed): Home, Self Care Charges/Coding Visit Charges Inpatient E&M: 45564 Disch Hosp
[2023-03-28 11:43] VITALS: BP 110/81; PULSE 76; RESP 14; TEMP 36.8; O2SAT 100
== END 2023-03-28 12:30 | disposition home or self-care (01) | DRG 390 ==
PROVIDERS: Family Medicine; Admitting Provider Hospitalist; PCP Student in an Organized Health Care Education/Training Program; Visit Provider Internal Medicine
DX: K56.690 Other partial intestinal obstruction (principal); C50.919 Malignant neoplasm of unspecified site of unspecified female breast; E03.9 Hypothyroidism, unspecified; F32.A Depression, unspecified; F17.210 Nicotine dependence, cigarettes, uncomplicated; G43.909 Migraine, unspecified, not intractable, without status migrainosus; M48.00 Spinal stenosis, site unspecified; M79.7 Fibromyalgia; K58.9 Irritable bowel syndrome, unspecified; G43.709 Chronic migraine without aura, not intractable, without status migrainosus; K21.9 Gastro-esophageal reflux disease without esophagitis; F41.9 Anxiety disorder, unspecified; G47.411 Narcolepsy with cataplexy; Z78.0 Asymptomatic menopausal state; Z17.0 Estrogen receptor positive status [ER+]; Z92.3 Personal history of irradiation; Z79.811 Long term (current) use of aromatase inhibitors
CPT/HCPCS: 36415; 74018; 74250; 80048; 80053; 82962; 83735; 84100; 85025; 94668; 99406; J7030; A4216; J2405